=== PATIENT | female | born 1960 | race Caucasian/White ===

== ENCOUNTER → 2016-08-03 | Outpatient (REF) | payer OTHER | LOC: M SFHCWAGY 11:06 | PROVIDERS: ATTEND Nurse Practitioner Family | DX: Z12.4 Encounter for screening for malignant neoplasm of cervix (principal) ==

== ENCOUNTER → 2016-08-03 | Outpatient (CLI) | payer OTHER ==
--- NOTE | 2016-08-03 17:18 | REP ---
Digital screening bilateral mammography with CAD: Comparison mammography July 15, 2015, July 10, 2014, and July 10, 2013. June 05, 2012 prior mammography is also reviewed. Mammographic findings: There is a stable nodular opacity in the upper outer quadrant of the left breast, unchanged from comparison mammography May 2012. Scattered fibroglandular elements are seen bilaterally as before. There is a grouping of four to five microcalcifications located in the tight grouping in the upper outer quadrant of the right breast which merits further evaluation. The right breast is otherwise unremarkable. No other mammographic finding. Impression: BIRADS category 0 incomplete breast imaging. Tight grouping of microcalcifications are observed in the upper outer quadrant of the right breast. Diagnostic right breast mammography recommended. BI-RADS/ACR category 0 mammogram. Incomplete. Additional imaging and/or prior images are needed before a final assessment can be assigned. This mammogram was interpreted with the aid of an FDA-approved computer-aided detection system. The patient states she/he had a clinical breast exam in July 2016. The patient letter being requested is M0. Signed by Hira Phillips MD 08/03/2016 05:36 P
== END ==
LOC: M WHC 10:45
PROVIDERS: ATTEND Nurse Practitioner Family
DX: R92.2 Inconclusive mammogram (principal)

== ENCOUNTER → 2016-08-17 | Outpatient (CLI) | payer OTHER ==
--- NOTE | 2016-08-17 12:27 | REP ---
DIGITAL DIAGNOSTIC UNILATERAL RIGHT BREAST MAMMOGRAPHY WITH CAD: HISTORY: Possible micro calcific grouping in the right breast on screening study from August 03, 2016. Also reviewed is a comparison study from July 10, 2014. FINDINGS: Magnified focal spot compression CC, true ML, and MLO views of the right breast confirm the presence of a polymorphic grouping of 7 to 8 microcalcifications with faint soft tissue nodularity in the upper outer quadrant of the right breast. This is a new finding. It merits suspicion. No other abnormality is seen. IMPRESSION: BIRADS category 4 suspicious right breast mammography. Stereotactic needle biopsy recommended for micro calcific grouping upper outer quadrant right breast. B-RADS/ACR category 4 mammogram. Suspicious abnormality - biopsy should be considered. Usually requires biopsy. This mammogram was interpreted with the aid of an FDA-approved computer-aided detection system. The patient states she/he had a clinical breast exam in August 17, 2016. The patient letter being requested is M4. Signed by Hira Phillips MD 08/17/2016 12:41 P
== END ==
LOC: M RAD 11:42
PROVIDERS: ATTEND Nurse Practitioner Family
DX: R92.0 Mammographic microcalcification found on diagnostic imaging of breast (principal)

== ENCOUNTER → 2016-09-14 | Outpatient (CLI) | payer OTHER ==
[~2016-09-14] MED LIST: LIDOCAINE 1% MDV 20ML VIAL As Ordered ONE
--- NOTE | 2016-09-14 14:43 | REP ---
Digital diagnostic unilateral right breast mammography with CAD: Two views. History: Patient status post stereotactic needle biopsy for microcalcifications in a grouping in the upper outer quadrant of the right breast. Marker clip placement views. Comparison mammography: August 17, 2016, August 03, 2016. Findings: Craniocaudad and mediolateral views of the right breast were obtained post biopsy. These demonstrate a marker clip in good position at the site of the now removed grouping of microcalcifications. There appears to be one remaining microcalcification adjacent to the marker clip. No hematoma is seen. Impression: Marker clip in good position post stereotactic needle biopsy for microcalcifications. This mammogram was interpreted with the aid of an FDA-approved computer-aided detection system. Signed by Hira Phillips MD 09/14/2016 03:00 P
--- NOTE | 2016-09-14 14:44 | REP ---
Specimen radiography right breast specimen. History: Stereotactic needle biopsy right breast for microcalcifications. Comparison mammography July of 2016. Findings: Specimen radiography demonstrates virtually all of the calcifications from the microcalcific grouping in one of the removed breast specimens. Impression: Specimen radiography demonstrates microcalcifications from the target in the breast specimen. Signed by Hira Phillips MD 09/14/2016 03:00 P
--- NOTE | 2016-09-14 17:14 | REP ---
STEREOTACTIC RIGHT BREAST BIOPSY: The procedure was performed under the personal supervision of Dr. Phillips. The patient has a history of a polymorphic grouping of 7 to 8 microcalcifications in the upper outer quadrant of the right breast seen on a previous mammogram dated 08/17/2016. The risks and benefits of the procedure were explained to the patient and informed consent was obtained. A lateral medial approach was utilized. The calcifications were localized using stereotactic mammographic guidance. The skin was prepped and draped in a sterile fashion. 1% lidocaine was used as a local anesthetic. A 10-gauge suction-assisted Mammotome needle was inserted and 6 core biopsy samples were obtained. Specimen radiograph demonstrates the presence of calcifications to be within the specimen. A marker clip was placed at the biopsy site. The patient tolerated the procedure well and there were no immediate complications. After the appropriate amount of monitored convalescence the patient was discharged from the department. Reviewed by BRIE Roberto 09/15/2016 04:45 PEdited and Signed by Hira Phillips MD 09/18/2016 08:34 A
== END ==
LOC: M RADPRO 12:27
PROVIDERS: ATTEND Surgery
DX: N64.89 Other specified disorders of breast (principal)

== ENCOUNTER → 2017-01-02 | Outpatient (REF) | payer OTHER | LOC: M LAB REF 13:49 | PROVIDERS: ATTEND Physician Assistant Medical | DX: J11.1 Influenza due to unidentified influenza virus with other respiratory manifestations (principal) ==

== ENCOUNTER 2017-09-19 15:19 | Emergency (ER) | payer OTHER ==
[2017-09-19] MEDS: APIXABAN 5 MG TAB (ELIQUIS) PO (20:17)
== END 2017-09-19 20:20 | disposition home or self-care (01) ==
LOC: M ED 15:19
DX: I82.721 Chronic embolism and thrombosis of deep veins of right upper extremity (principal); I82.B11 Acute embolism and thrombosis of right subclavian vein; I10 Essential (primary) hypertension; E03.9 Hypothyroidism, unspecified; Z88.2 Allergy status to sulfonamides; Z91.040 Latex allergy status; Z79.899 Other long term (current) drug therapy
CPT/HCPCS: 93971

== ENCOUNTER 2017-09-21 09:42 | Inpatient (IN) | payer OTHER ==
[2017-09-21] MEDS: HEPARIN DRIP 25,000 UNITS in APPROPRIATE DILUENT 1 EA IV ×2 (13:11→16:00)
[2017-09-21] MEDS: NS 1,000 ML IV ×2 (13:15)
[2017-09-21] MEDS ORDERED: ALTEPLASE 2 MG/2 ML VIAL (J2997 PER 1MG) As Ordered (15:27)
[2017-09-21] MEDS: ALTEPLASE RECOMBINANT 25 MG in NS 225 ML IV (16:00)
[2017-09-21] MEDS: ALTEPLASE RECOMBINANT 10 MG in APPROPRIATE DILUENT 1 EA IV (16:00)
[2017-09-21] MEDS ORDERED: ISOVUE-300 61% 50ML VIAL (Q9967) As Ordered (16:04)
[2017-09-21 18:48] LABS: HEMATOCRIT 37.8 % (36.0-47.0); HEMOGLOBIN 12.4 g/dl (12.0-15.5)
[2017-09-21 19:07] LABS: PARTIAL THROMBOPLASTIN TIME 33.1 SECONDS (26.8-37.9)
[2017-09-21 19:07] LABS: FIBRINOGEN 424 MG/DL (221-452)
[2017-09-22 00:16] LABS: HEMATOCRIT 36.8 % (36.0-47.0)
[2017-09-22 00:23] LABS: FIBRINOGEN 388 MG/DL (221-452)
[2017-09-22 00:24] LABS: PARTIAL THROMBOPLASTIN TIME 44.2 SECONDS (26.8-37.9)
[2017-09-22] MEDS: LEVOTHYROXINE 112MCG TABLET (0.112MG) PO (05:37)
[2017-09-22] MEDS: LEVOTHYROXINE PO (05:55)
[2017-09-22 06:11] LABS: PARTIAL THROMBOPLASTIN TIME 62.2 SECONDS (26.8-37.9)
[2017-09-22 06:11] LABS: FIBRINOGEN 404 MG/DL (221-452)
[2017-09-22 06:20] LABS: HEMOGLOBIN 12.1 g/dl (12.0-15.5); MEAN CORPUSCULAR HEMOGLOBIN 29.3 pg (27.0-33.0); MEAN CORPUSCULAR HGB CONC 32.7 g/dl (32.0-36.5); MEAN CORPUSCULAR VOLUME 89.6 fl (80.0-96.0); PLATELET COUNT, AUTOMATED 267 10^3/uL (150-450); RED BLOOD COUNT 4.13 10^6/uL (4.00-5.40); WHITE BLOOD COUNT 8.4 10^3/uL (4.0-10.0)
[2017-09-22 06:38] LABS: ALBUMIN 3.6 GM/DL (3.2-5.2); ALBUMIN/GLOBULIN RATIO 0.88 (1.00-1.93); ALKALINE PHOSPHATASE 65 U/L (45-117); ALT/SGPT 25 U/L (12-78); ANION GAP 9 MEQ/L (8-16); AST/SGOT 20 U/L (7-37); BILIRUBIN,TOTAL 0.5 MG/DL (0.2-1.0); BLOOD UREA NITROGEN 20 MG/DL (7-18); CALCIUM LEVEL 8.8 MG/DL (8.5-10.1); CARBON DIOXIDE LEVEL 28 MEQ/L (21-32); CHLORIDE LEVEL 103 MEQ/L (98-107); CREATININE FOR GFR 0.87 MG/DL (0.55-1.30); GLOMERULAR FILTRATION RATE > 60.0 (>51); GLUCOSE, FASTING 125 MG/DL (70-100); POTASSIUM SERUM 3.5 MEQ/L (3.5-5.1); SODIUM LEVEL 140 MEQ/L (136-145); TOTAL PROTEIN 7.7 GM/DL (6.4-8.2)
[2017-09-22] MEDS: NEBIVOLOL 5 MG TAB (BYSTOLIC) PO (08:57)
[2017-09-22] MEDS: LOSARTAN 25 MG TAB PO (08:58)
[2017-09-22] MEDS: INDAPAMIDE 1.25MG TABLET PO (08:58)
[2017-09-22] MEDS: HEPARIN DRIP 25,000 UNITS in APPROPRIATE DILUENT 1 EA IV (12:16)
[2017-09-22 13:20] LABS: HEMATOCRIT 39.3 % (36.0-47.0); HEMOGLOBIN 12.9 g/dl (12.0-15.5)
[2017-09-22 13:32] LABS: FIBRINOGEN 410 MG/DL (221-452)
[2017-09-22 13:32] LABS: PARTIAL THROMBOPLASTIN TIME 30.2 SECONDS (26.8-37.9)
[2017-09-22] MEDS: ALTEPLASE RECOMBINANT 25 MG in NS 225 ML IV (15:59)
[2017-09-22 18:45] LABS: HEMATOCRIT 38.4 % (36.0-47.0); HEMOGLOBIN 12.4 g/dl (12.0-15.5)
[2017-09-22 19:21] LABS: FIBRINOGEN 397 MG/DL (221-452)
[2017-09-22 20:18] LABS: PARTIAL THROMBOPLASTIN TIME 34.9 SECONDS (26.8-37.9)
[2017-09-22] MEDS: FENOFIBRATE 145 MG TAB (TRICOR) PO (21:00)
[2017-09-23 00:09] LABS: FIBRINOGEN 368 MG/DL (221-452)
[2017-09-23 00:09] LABS: PARTIAL THROMBOPLASTIN TIME 38.8 SECONDS (26.8-37.9)
[2017-09-23 00:11] LABS: HEMATOCRIT 35.8 % (36.0-47.0); HEMOGLOBIN 11.7 g/dl (12.0-15.5)
[2017-09-23] MEDS: LEVOTHYROXINE 112MCG TABLET (0.112MG) PO (05:42)
[2017-09-23 06:00] LABS: HEMATOCRIT 35.7 % (36.0-47.0); HEMOGLOBIN 11.7 g/dl (12.0-15.5); MEAN CORPUSCULAR HEMOGLOBIN 29.1 pg (27.0-33.0); MEAN CORPUSCULAR HGB CONC 32.8 g/dl (32.0-36.5); MEAN CORPUSCULAR VOLUME 88.8 fl (80.0-96.0); PLATELET COUNT, AUTOMATED 249 10^3/uL (150-450); RED BLOOD COUNT 4.02 10^6/uL (4.00-5.40); RED CELL DISTRIBUTION WIDTH 13.8 % (11.5-14.5)
[2017-09-23 06:11] LABS: FIBRINOGEN 291 MG/DL (221-452)
[2017-09-23 06:56] LABS: ALBUMIN 3.2 GM/DL (3.2-5.2); ALBUMIN/GLOBULIN RATIO 0.82 (1.00-1.93); ALKALINE PHOSPHATASE 58 U/L (45-117); ALT/SGPT 23 U/L (12-78); ANION GAP 8 MEQ/L (8-16); AST/SGOT 25 U/L (7-37); BILIRUBIN,TOTAL 0.4 MG/DL (0.2-1.0); BLOOD UREA NITROGEN 20 MG/DL (7-18); CALCIUM LEVEL 8.5 MG/DL (8.5-10.1); CARBON DIOXIDE LEVEL 27 MEQ/L (21-32); CHLORIDE LEVEL 105 MEQ/L (98-107); CREATININE FOR GFR 0.91 MG/DL (0.55-1.30); GLOMERULAR FILTRATION RATE > 60.0 (>51); GLUCOSE, FASTING 140 MG/DL (70-100); POTASSIUM SERUM 3.5 MEQ/L (3.5-5.1); SODIUM LEVEL 140 MEQ/L (136-145); TOTAL PROTEIN 7.1 GM/DL (6.4-8.2)
[2017-09-23 07:17] LABS: PARTIAL THROMBOPLASTIN TIME 49.3 SECONDS (26.8-37.9)
[2017-09-23] MEDS: INDAPAMIDE 1.25MG TABLET PO (08:59)
[2017-09-23] MEDS: NEBIVOLOL 5 MG TAB (BYSTOLIC) PO (09:00)
[2017-09-23 12:51] LABS: PARTIAL THROMBOPLASTIN TIME 33.3 SECONDS (26.8-37.9)
[2017-09-23 12:51] LABS: FIBRINOGEN 334 MG/DL (221-452)
[2017-09-23] MEDS: ALTEPLASE RECOMBINANT 25 MG in NS 225 ML IV (15:19)
[2017-09-23] MEDS: HEPARIN DRIP 25,000 UNITS in APPROPRIATE DILUENT 1 EA IV (15:21)
[2017-09-23 18:42] LABS: HEMATOCRIT 37.1 % (36.0-47.0); HEMOGLOBIN 12.1 g/dl (12.0-15.5)
[2017-09-23 19:04] LABS: FIBRINOGEN 332 MG/DL (221-452)
[2017-09-23 19:04] LABS: PARTIAL THROMBOPLASTIN TIME 34.4 SECONDS (26.8-37.9)
[2017-09-23] MEDS: LOSARTAN 25 MG TAB PO (20:51)
[2017-09-23] MEDS: FENOFIBRATE 145 MG TAB (TRICOR) PO (20:51)
[2017-09-23] MEDS: NS 1,000 ML IV (21:41)
[2017-09-24 00:42] LABS: HEMATOCRIT 34.2 % (36.0-47.0); HEMOGLOBIN 11.4 g/dl (12.0-15.5)
[2017-09-24 00:49] LABS: PARTIAL THROMBOPLASTIN TIME 37.9 SECONDS (26.8-37.9)
[2017-09-24 00:49] LABS: FIBRINOGEN 247 MG/DL (221-452)
[2017-09-24] MEDS: LEVOTHYROXINE 112MCG TABLET (0.112MG) PO (06:15)
[2017-09-24 06:30] LABS: HEMATOCRIT 34.7 % (36.0-47.0); HEMOGLOBIN 11.3 g/dl (12.0-15.5); MEAN CORPUSCULAR HGB CONC 32.6 g/dl (32.0-36.5); MEAN CORPUSCULAR VOLUME 89.2 fl (80.0-96.0); PLATELET COUNT, AUTOMATED 207 10^3/uL (150-450); RED BLOOD COUNT 3.89 10^6/uL (4.00-5.40); RED CELL DISTRIBUTION WIDTH 13.8 % (11.5-14.5); WHITE BLOOD COUNT 7.3 10^3/uL (4.0-10.0)
[2017-09-24 06:40] LABS: PARTIAL THROMBOPLASTIN TIME 35.2 SECONDS (26.8-37.9)
[2017-09-24 06:40] LABS: FIBRINOGEN 276 MG/DL (221-452)
[2017-09-24 07:01] LABS: ALBUMIN 3.3 GM/DL (3.2-5.2); ALBUMIN/GLOBULIN RATIO 0.87 (1.00-1.93); ALKALINE PHOSPHATASE 61 U/L (45-117); ALT/SGPT 22 U/L (12-78); ANION GAP 6 MEQ/L (8-16); AST/SGOT 19 U/L (7-37); BILIRUBIN,TOTAL 0.3 MG/DL (0.2-1.0); BLOOD UREA NITROGEN 17 MG/DL (7-18); CALCIUM LEVEL 8.4 MG/DL (8.5-10.1); CARBON DIOXIDE LEVEL 28 MEQ/L (21-32); CHLORIDE LEVEL 106 MEQ/L (98-107); CREATININE FOR GFR 0.93 MG/DL (0.55-1.30); GLOMERULAR FILTRATION RATE > 60.0 (>51); GLUCOSE, FASTING 114 MG/DL (70-100); SODIUM LEVEL 140 MEQ/L (136-145); TOTAL PROTEIN 7.1 GM/DL (6.4-8.2)
[2017-09-24] MEDS ORDERED: SLF 3 ML SYR IV (07:30)
[2017-09-24] MEDS: NYSTATIN 100,000 UNITS/GM TOPICAL PWD 15 GM TOP ×2 (09:00→21:21)
[2017-09-24] MEDS: INDAPAMIDE 1.25MG TABLET PO (09:34)
[2017-09-24] MEDS: NEBIVOLOL 5 MG TAB (BYSTOLIC) PO (09:34)
[2017-09-24 12:16] LABS: HEMATOCRIT 34.4 % (36.0-47.0); HEMOGLOBIN 11.2 g/dl (12.0-15.5)
[2017-09-24 12:30] LABS: FIBRINOGEN 228 MG/DL (221-452); PARTIAL THROMBOPLASTIN TIME 36.7 SECONDS (26.8-37.9)
[2017-09-24] MEDS: SLF 3 ML SYR IV ×2 (14:00→22:00)
[2017-09-24] MEDS: HEPARIN DRIP 25,000 UNITS in APPROPRIATE DILUENT 1 EA IV (15:48)
[2017-09-24] MEDS: ALTEPLASE RECOMBINANT 25 MG in NS 225 ML IV (15:48)
[2017-09-24 18:08] LABS: HEMATOCRIT 31.3 % (36.0-47.0); HEMOGLOBIN 10.2 g/dl (12.0-15.5)
[2017-09-24 18:23] LABS: PARTIAL THROMBOPLASTIN TIME 43.8 SECONDS (26.8-37.9)
[2017-09-24 18:23] LABS: FIBRINOGEN 235 MG/DL (221-452)
[2017-09-24] MEDS: FENOFIBRATE 145 MG TAB (TRICOR) PO (21:19)
[2017-09-24] MEDS: LOSARTAN 25 MG TAB PO (21:20)
[2017-09-24] MEDS: NS 1,000 ML IV (21:30)
[2017-09-25 00:54] LABS: HEMOGLOBIN 11.3 g/dl (12.0-15.5)
[2017-09-25 01:22] LABS: FIBRINOGEN 188 MG/DL (221-452)
[2017-09-25 01:23] LABS: PARTIAL THROMBOPLASTIN TIME 80.2 SECONDS (26.8-37.9)
[2017-09-25] MEDS: SLF 3 ML SYR IV ×3 (06:05→21:20)
[2017-09-25] MEDS: LEVOTHYROXINE 112MCG TABLET (0.112MG) PO (06:05)
[2017-09-25 06:26] LABS: HEMOGLOBIN 11.2 g/dl (12.0-15.5); MEAN CORPUSCULAR HEMOGLOBIN 29.2 pg (27.0-33.0); MEAN CORPUSCULAR HGB CONC 32.9 g/dl (32.0-36.5); MEAN CORPUSCULAR VOLUME 88.8 fl (80.0-96.0); PLATELET COUNT, AUTOMATED 200 10^3/uL (150-450); RED BLOOD COUNT 3.83 10^6/uL (4.00-5.40); RED CELL DISTRIBUTION WIDTH 13.8 % (11.5-14.5); WHITE BLOOD COUNT 7.3 10^3/uL (4.0-10.0)
[2017-09-25 06:36] LABS: FIBRINOGEN 236 MG/DL (221-452)
[2017-09-25 06:36] LABS: PARTIAL THROMBOPLASTIN TIME 39.2 SECONDS (26.8-37.9)
[2017-09-25 06:59] LABS: ALBUMIN 3.1 GM/DL (3.2-5.2); ALBUMIN/GLOBULIN RATIO 0.79 (1.00-1.93); ALKALINE PHOSPHATASE 55 U/L (45-117); ALT/SGPT 20 U/L (12-78); ANION GAP 8 MEQ/L (8-16); AST/SGOT 22 U/L (7-37); BILIRUBIN,TOTAL 0.4 MG/DL (0.2-1.0); BLOOD UREA NITROGEN 11 MG/DL (7-18); CARBON DIOXIDE LEVEL 28 MEQ/L (21-32); CHLORIDE LEVEL 105 MEQ/L (98-107); CREATININE FOR GFR 0.82 MG/DL (0.55-1.30); GLOMERULAR FILTRATION RATE > 60.0 (>51); GLUCOSE, FASTING 107 MG/DL (70-100); POTASSIUM SERUM 3.9 MEQ/L (3.5-5.1); SODIUM LEVEL 141 MEQ/L (136-145)
[2017-09-25] MEDS ORDERED: ISOVUE-300 61% 50ML VIAL (Q9967) As Ordered (09:00)
[2017-09-25] MEDS: INDAPAMIDE 1.25MG TABLET PO (10:50)
[2017-09-25] MEDS: NYSTATIN 100,000 UNITS/GM TOPICAL PWD 15 GM TOP ×2 (10:50→20:28)
[2017-09-25] MEDS: NEBIVOLOL 5 MG TAB (BYSTOLIC) PO (10:51)
[2017-09-25 12:32] LABS: HEMATOCRIT 35.9 % (36.0-47.0); HEMOGLOBIN 11.7 g/dl (12.0-15.5)
[2017-09-25 12:47] LABS: PARTIAL THROMBOPLASTIN TIME 26.2 SECONDS (26.8-37.9)
[2017-09-25 12:48] LABS: FIBRINOGEN 179 MG/DL (221-452)
[2017-09-25] MEDS: ALTEPLASE RECOMBINANT 25 MG in NS 225 ML IV (15:42)
[2017-09-25] MEDS: HEPARIN DRIP 25,000 UNITS in APPROPRIATE DILUENT 1 EA IV (15:43)
[2017-09-25 18:32] LABS: HEMATOCRIT 35.6 % (36.0-47.0); HEMOGLOBIN 11.4 g/dl (12.0-15.5)
[2017-09-25 18:52] LABS: FIBRINOGEN 223 MG/DL (221-452)
[2017-09-25 18:52] LABS: PARTIAL THROMBOPLASTIN TIME 33.3 SECONDS (26.8-37.9)
[2017-09-25] MEDS: FENOFIBRATE 145 MG TAB (TRICOR) PO (20:28)
[2017-09-25] MEDS: LOSARTAN 25 MG TAB PO (20:28)
[2017-09-25] MEDS: NS 1,000 ML IV (21:20)
[2017-09-26 00:08] LABS: HEMATOCRIT 33.6 % (36.0-47.0)
[2017-09-26 00:52] LABS: PARTIAL THROMBOPLASTIN TIME 34.8 SECONDS (26.8-37.9)
[2017-09-26 00:52] LABS: FIBRINOGEN 222 MG/DL (221-452)
[2017-09-26] MEDS: LEVOTHYROXINE 112MCG TABLET (0.112MG) PO (05:53)
[2017-09-26] MEDS: SLF 3 ML SYR IV ×3 (05:54→21:49)
[2017-09-26 06:06] LABS: HEMATOCRIT 34.6 % (36.0-47.0); HEMOGLOBIN 11.2 g/dl (12.0-15.5); MEAN CORPUSCULAR HGB CONC 32.4 g/dl (32.0-36.5); MEAN CORPUSCULAR VOLUME 89.6 fl (80.0-96.0); PLATELET COUNT, AUTOMATED 198 10^3/uL (150-450); RED BLOOD COUNT 3.86 10^6/uL (4.00-5.40); RED CELL DISTRIBUTION WIDTH 13.8 % (11.5-14.5); WHITE BLOOD COUNT 7.4 10^3/uL (4.0-10.0)
[2017-09-26 06:17] LABS: PARTIAL THROMBOPLASTIN TIME 36.5 SECONDS (26.8-37.9)
[2017-09-26 06:17] LABS: FIBRINOGEN 260 MG/DL (221-452)
[2017-09-26 06:41] LABS: ALBUMIN 3.3 GM/DL (3.2-5.2); ALBUMIN/GLOBULIN RATIO 0.77 (1.00-1.93); ALKALINE PHOSPHATASE 60 U/L (45-117); ALT/SGPT 22 U/L (12-78); ANION GAP 7 MEQ/L (8-16); AST/SGOT 26 U/L (7-37); BILIRUBIN,TOTAL 0.2 MG/DL (0.2-1.0); BLOOD UREA NITROGEN 17 MG/DL (7-18); CALCIUM LEVEL 8.8 MG/DL (8.5-10.1); CARBON DIOXIDE LEVEL 27 MEQ/L (21-32); CHLORIDE LEVEL 104 MEQ/L (98-107); GLOMERULAR FILTRATION RATE > 60.0 (>51); GLUCOSE, FASTING 128 MG/DL (70-100); POTASSIUM SERUM 3.8 MEQ/L (3.5-5.1); SODIUM LEVEL 138 MEQ/L (136-145); TOTAL PROTEIN 7.6 GM/DL (6.4-8.2)
[2017-09-26] MEDS: INDAPAMIDE 1.25MG TABLET PO (08:13)
[2017-09-26] MEDS: NYSTATIN 100,000 UNITS/GM TOPICAL PWD 15 GM TOP ×2 (08:14→20:34)
[2017-09-26] MEDS: NEBIVOLOL 5 MG TAB (BYSTOLIC) PO (09:23)
[2017-09-26 12:33] LABS: HEMATOCRIT 35.1 % (36.0-47.0); HEMOGLOBIN 11.6 g/dl (12.0-15.5)
[2017-09-26] MEDS ORDERED: HEPARIN 25,000 UNITS/250 ML D5W BAG (100 UNITS/ML) As Ordered (15:27)
[2017-09-26] MEDS: HEPARIN DRIP 25,000 UNITS in APPROPRIATE DILUENT 1 EA IV (19:00)
[2017-09-26] MEDS: FENOFIBRATE 145 MG TAB (TRICOR) PO (20:34)
[2017-09-26] MEDS: LOSARTAN 25 MG TAB PO (20:34)
[2017-09-26] MEDS: ALTEPLASE RECOMBINANT IV (20:37)
[2017-09-26] MEDS: NS IV (20:37)
[2017-09-26] MEDS: NS 1,000 ML IV (21:30)
[2017-09-27 00:09] LABS: HEMATOCRIT 32.8 % (36.0-47.0); HEMOGLOBIN 10.7 g/dl (12.0-15.5)
[2017-09-27 00:36] LABS: FIBRINOGEN 264 MG/DL (221-452)
[2017-09-27 00:36] LABS: PARTIAL THROMBOPLASTIN TIME 31.9 SECONDS (26.8-37.9)
[2017-09-27 01:24] LABS: PARTIAL THROMBOPLASTIN TIME 38.9 SECONDS (26.8-37.9)
[2017-09-27 01:24] LABS: FIBRINOGEN < 270 MG/DL (221-452); HEMATOCRIT 31.5 % (36.0-47.0); HEMOGLOBIN 10.4 g/dl (12.0-15.5)
[2017-09-27] MEDS: LEVOTHYROXINE 112MCG TABLET (0.112MG) PO (05:43)
[2017-09-27] MEDS: SLF 3 ML SYR IV ×3 (05:43→20:52)
[2017-09-27 05:55] LABS: HEMATOCRIT 34.1 % (36.0-47.0); HEMOGLOBIN 10.9 g/dl (12.0-15.5); MEAN CORPUSCULAR HEMOGLOBIN 28.8 pg (27.0-33.0); MEAN CORPUSCULAR VOLUME 90.2 fl (80.0-96.0); PLATELET COUNT, AUTOMATED 184 10^3/uL (150-450); RED BLOOD COUNT 3.78 10^6/uL (4.00-5.40); RED CELL DISTRIBUTION WIDTH 13.8 % (11.5-14.5); WHITE BLOOD COUNT 8.4 10^3/uL (4.0-10.0)
[2017-09-27 06:23] LABS: ALBUMIN 3.2 GM/DL (3.2-5.2); ALBUMIN/GLOBULIN RATIO 0.74 (1.00-1.93); ALKALINE PHOSPHATASE 60 U/L (45-117); ALT/SGPT 29 U/L (12-78); ANION GAP 7 MEQ/L (8-16); AST/SGOT 26 U/L (7-37); BILIRUBIN,TOTAL 0.3 MG/DL (0.2-1.0); BLOOD UREA NITROGEN 18 MG/DL (7-18); CALCIUM LEVEL 8.9 MG/DL (8.5-10.1); CARBON DIOXIDE LEVEL 27 MEQ/L (21-32); CHLORIDE LEVEL 106 MEQ/L (98-107); CREATININE FOR GFR 0.95 MG/DL (0.55-1.30); GLOMERULAR FILTRATION RATE > 60.0 (>51); GLUCOSE, FASTING 106 MG/DL (70-100); SODIUM LEVEL 140 MEQ/L (136-145); TOTAL PROTEIN 7.5 GM/DL (6.4-8.2)
[2017-09-27 07:11] LABS: FIBRINOGEN 173 MG/DL (221-452)
[2017-09-27 07:12] LABS: PARTIAL THROMBOPLASTIN TIME 56.8 SECONDS (26.8-37.9)
[2017-09-27 07:41] LABS: PARTIAL THROMBOPLASTIN TIME 48.5 SECONDS (26.8-37.9)
[2017-09-27 07:41] LABS: FIBRINOGEN 87 MG/DL (221-452)
[2017-09-27] MEDS ORDERED: ISOVUE-300 61% 50ML VIAL (Q9967) As Ordered (08:55)
[2017-09-27] MEDS ORDERED: LIDOCAINE 2% MDV 20 ML VIAL As Ordered (08:56)
[2017-09-27] MEDS: INDAPAMIDE 1.25MG TABLET PO (11:22)
[2017-09-27] MEDS: NYSTATIN 100,000 UNITS/GM TOPICAL PWD 15 GM TOP ×2 (11:23→20:51)
[2017-09-27] MEDS: NEBIVOLOL 5 MG TAB (BYSTOLIC) PO (11:23)
[2017-09-27 11:49] LABS: HEMATOCRIT 35.3 % (36.0-47.0); HEMOGLOBIN 11.4 g/dl (12.0-15.5)
[2017-09-27 12:05] LABS: FIBRINOGEN 110 MG/DL (221-452)
[2017-09-27] MEDS: NS 1,000 ML IV (14:02)
[2017-09-27] MEDS: HEPARIN DRIP 25,000 UNITS in APPROPRIATE DILUENT 1 EA IV (14:03)
[2017-09-27] MEDS: NS IV (16:48)
[2017-09-27] MEDS: ALTEPLASE RECOMBINANT IV (16:48)
[2017-09-27 18:35] LABS: HEMATOCRIT 24.8 % (36.0-47.0); HEMOGLOBIN 7.7 g/dl (12.0-15.5)
[2017-09-27 19:19] LABS: FIBRINOGEN 165 MG/DL (221-452)
[2017-09-27 19:19] LABS: PARTIAL THROMBOPLASTIN TIME 51.7 SECONDS (26.8-37.9)
[2017-09-27] MEDS: FENOFIBRATE 145 MG TAB (TRICOR) PO (20:51)
[2017-09-27] MEDS: LOSARTAN 25 MG TAB PO (20:51)
[2017-09-27 23:51] LABS: HEMATOCRIT 33.7 % (36.0-47.0)
[2017-09-28 00:05] LABS: HEMOGLOBIN 10.9 g/dl (12.0-15.5)
[2017-09-28 00:30] LABS: FIBRINOGEN 130 MG/DL (221-452)
[2017-09-28] MEDS: LEVOTHYROXINE 112MCG TABLET (0.112MG) PO (05:08)
[2017-09-28 05:14] LABS: HEMATOCRIT 33.8 % (36.0-47.0); HEMOGLOBIN 10.8 g/dl (12.0-15.5); MEAN CORPUSCULAR HEMOGLOBIN 28.8 pg (27.0-33.0); MEAN CORPUSCULAR VOLUME 90.1 fl (80.0-96.0); PLATELET COUNT, AUTOMATED 185 10^3/uL (150-450); RED BLOOD COUNT 3.75 10^6/uL (4.00-5.40); RED CELL DISTRIBUTION WIDTH 13.9 % (11.5-14.5)
[2017-09-28] MEDS: SLF 3 ML SYR IV ×3 (05:21→21:39)
[2017-09-28 05:48] LABS: ALBUMIN 3.3 GM/DL (3.2-5.2); ALBUMIN/GLOBULIN RATIO 0.83 (1.00-1.93); ALKALINE PHOSPHATASE 63 U/L (45-117); ALT/SGPT 25 U/L (12-78); ANION GAP 6 MEQ/L (8-16); AST/SGOT 21 U/L (7-37); BILIRUBIN,TOTAL 0.3 MG/DL (0.2-1.0); BLOOD UREA NITROGEN 19 MG/DL (7-18); CALCIUM LEVEL 8.5 MG/DL (8.5-10.1); CARBON DIOXIDE LEVEL 28 MEQ/L (21-32); CHLORIDE LEVEL 106 MEQ/L (98-107); CREATININE FOR GFR 0.95 MG/DL (0.55-1.30); GLOMERULAR FILTRATION RATE > 60.0 (>51); GLUCOSE, FASTING 117 MG/DL (70-100); POTASSIUM SERUM 4.1 MEQ/L (3.5-5.1); SODIUM LEVEL 140 MEQ/L (136-145); TOTAL PROTEIN 7.3 GM/DL (6.4-8.2)
[2017-09-28 05:56] LABS: FIBRINOGEN 203 MG/DL (221-452)
[2017-09-28 05:57] LABS: PARTIAL THROMBOPLASTIN TIME 68.4 SECONDS (26.8-37.9)
[2017-09-28] MEDS: NYSTATIN 100,000 UNITS/GM TOPICAL PWD 15 GM TOP ×2 (09:00→21:34)
[2017-09-28] MEDS: INDAPAMIDE 1.25MG TABLET PO (09:00)
[2017-09-28] MEDS: NEBIVOLOL 5 MG TAB (BYSTOLIC) PO (09:01)
[2017-09-28] MEDS: HEPARIN DRIP 25,000 UNITS in APPROPRIATE DILUENT 1 EA IV (09:10)
[2017-09-28] MEDS: NS IV (16:36)
[2017-09-28] MEDS: ALTEPLASE RECOMBINANT IV (16:36)
[2017-09-28 18:43] LABS: HEMATOCRIT 34.2 % (36.0-47.0); HEMOGLOBIN 11.1 g/dl (12.0-15.5)
[2017-09-28 18:54] LABS: PARTIAL THROMBOPLASTIN TIME 67.9 SECONDS (26.8-37.9)
[2017-09-28 18:54] LABS: FIBRINOGEN 224 MG/DL (221-452)
[2017-09-28] MEDS ORDERED: SODIUM CHLORIDE 0.9% INJ 10 ML SYR IV (21:30)
[2017-09-28] MEDS: LOSARTAN 25 MG TAB PO (21:34)
[2017-09-28] MEDS: NS 1,000 ML IV (21:35)
[2017-09-28] MEDS: FENOFIBRATE 145 MG TAB (TRICOR) PO (21:37)
[2017-09-28] MEDS: SODIUM CHLORIDE 0.9% INJ 10 ML SYR IV (21:38)
[2017-09-29 00:43] LABS: HEMATOCRIT 34.2 % (36.0-47.0); HEMOGLOBIN 10.9 g/dl (12.0-15.5)
[2017-09-29 01:01] LABS: FIBRINOGEN 217 MG/DL (221-452)
[2017-09-29 01:01] LABS: PARTIAL THROMBOPLASTIN TIME 39.4 SECONDS (26.8-37.9)
[2017-09-29] MEDS: SLF 3 ML SYR IV ×2 (06:00→14:00)
[2017-09-29] MEDS: SODIUM CHLORIDE 0.9% INJ 10 ML SYR IV ×2 (06:35→14:00)
[2017-09-29] MEDS: LEVOTHYROXINE PO (06:35)
[2017-09-29] MEDS: LEVOTHYROXINE 112MCG TABLET (0.112MG) PO (06:35)
[2017-09-29] MEDS: HEPARIN DRIP 25,000 UNITS in APPROPRIATE DILUENT 1 EA IV (06:39)
[2017-09-29 06:40] LABS: HEMATOCRIT 33.2 % (36.0-47.0); HEMOGLOBIN 10.7 g/dl (12.0-15.5)
[2017-09-29 07:00] LABS: FIBRINOGEN 229 MG/DL (221-452)
[2017-09-29 07:00] LABS: PARTIAL THROMBOPLASTIN TIME 46.2 SECONDS (26.8-37.9)
[2017-09-29] MEDS: NYSTATIN 100,000 UNITS/GM TOPICAL PWD 15 GM TOP ×2 (09:38→21:36)
[2017-09-29] MEDS: INDAPAMIDE 1.25MG TABLET PO (09:38)
[2017-09-29] MEDS: NEBIVOLOL 5 MG TAB (BYSTOLIC) PO (09:39)
[2017-09-29 12:21] LABS: HEMATOCRIT 34.5 % (36.0-47.0); HEMOGLOBIN 11.2 g/dl (12.0-15.5); MEAN CORPUSCULAR HEMOGLOBIN 29.4 pg (27.0-33.0); MEAN CORPUSCULAR HGB CONC 32.5 g/dl (32.0-36.5); MEAN CORPUSCULAR VOLUME 90.6 fl (80.0-96.0); PLATELET COUNT, AUTOMATED 213 10^3/uL (150-450); RED BLOOD COUNT 3.81 10^6/uL (4.00-5.40); RED CELL DISTRIBUTION WIDTH 13.9 % (11.5-14.5); WHITE BLOOD COUNT 8.3 10^3/uL (4.0-10.0)
[2017-09-29 12:35] LABS: PARTIAL THROMBOPLASTIN TIME 36.9 SECONDS (26.8-37.9)
[2017-09-29 12:35] LABS: FIBRINOGEN 241 MG/DL (221-452)
[2017-09-29 12:43] LABS: ANION GAP 8 MEQ/L (8-16); BLOOD UREA NITROGEN 21 MG/DL (7-18); CALCIUM LEVEL 9.2 MG/DL (8.5-10.1); CARBON DIOXIDE LEVEL 27 MEQ/L (21-32); CHLORIDE LEVEL 104 MEQ/L (98-107); CREATININE FOR GFR 0.96 MG/DL (0.55-1.30); GLOMERULAR FILTRATION RATE > 60.0 (>51); GLUCOSE, FASTING 127 MG/DL (70-100); POTASSIUM SERUM 3.9 MEQ/L (3.5-5.1); SODIUM LEVEL 139 MEQ/L (136-145)
[2017-09-29] MEDS: NS IV (14:56)
[2017-09-29] MEDS: ALTEPLASE RECOMBINANT IV (14:56)
[2017-09-29] MEDS: NS 1,000 ML IV (17:57)
[2017-09-29 18:17] LABS: HEMATOCRIT 33.1 % (36.0-47.0); HEMOGLOBIN 10.7 g/dl (12.0-15.5)
[2017-09-29 18:30] LABS: PARTIAL THROMBOPLASTIN TIME 38.2 SECONDS (26.8-37.9)
[2017-09-29 18:30] LABS: FIBRINOGEN 237 MG/DL (221-452)
[2017-09-29] MEDS: FENOFIBRATE 145 MG TAB (TRICOR) PO (21:36)
[2017-09-29] MEDS: LOSARTAN 25 MG TAB PO (21:36)
[2017-09-30] MEDS: SODIUM CHLORIDE 0.9% INJ 10 ML SYR IV ×3 (00:07→14:00)
[2017-09-30] MEDS: SLF 3 ML SYR IV ×3 (00:07→14:00)
[2017-09-30 00:37] LABS: HEMATOCRIT 33.3 % (36.0-47.0); HEMOGLOBIN 10.7 g/dl (12.0-15.5)
[2017-09-30 00:54] LABS: FIBRINOGEN 226 MG/DL (221-452)
[2017-09-30] MEDS: HEPARIN DRIP 25,000 UNITS in APPROPRIATE DILUENT 1 EA IV (04:05)
[2017-09-30] MEDS: LEVOTHYROXINE 112MCG TABLET (0.112MG) PO (06:13)
[2017-09-30 06:22] LABS: HEMATOCRIT 33.2 % (36.0-47.0); HEMOGLOBIN 10.5 g/dl (12.0-15.5)
[2017-09-30 06:36] LABS: FIBRINOGEN 209 MG/DL (221-452)
[2017-09-30 06:36] LABS: PARTIAL THROMBOPLASTIN TIME 42.2 SECONDS (26.8-37.9)
[2017-09-30] MEDS: NEBIVOLOL 5 MG TAB (BYSTOLIC) PO (09:36)
[2017-09-30] MEDS: INDAPAMIDE 1.25MG TABLET PO (09:36)
[2017-09-30] MEDS: NYSTATIN 100,000 UNITS/GM TOPICAL PWD 15 GM TOP ×2 (09:37→20:25)
[2017-09-30 12:34] LABS: HEMATOCRIT 35.8 % (36.0-47.0); HEMOGLOBIN 11.5 g/dl (12.0-15.5)
[2017-09-30 12:47] LABS: PARTIAL THROMBOPLASTIN TIME 46.8 SECONDS (26.8-37.9)
[2017-09-30 12:47] LABS: FIBRINOGEN 244 MG/DL (221-452)
[2017-09-30] MEDS: NS IV (13:37)
[2017-09-30] MEDS: ALTEPLASE RECOMBINANT IV (13:37)
[2017-09-30 18:38] LABS: HEMATOCRIT 34.4 % (36.0-47.0); HEMOGLOBIN 11.2 g/dl (12.0-15.5)
[2017-09-30 19:02] LABS: PARTIAL THROMBOPLASTIN TIME 44.7 SECONDS (26.8-37.9)
[2017-09-30 19:07] LABS: FIBRINOGEN 280 MG/DL (221-452)
[2017-09-30] MEDS: LOSARTAN 25 MG TAB PO (20:25)
[2017-09-30] MEDS: FENOFIBRATE 145 MG TAB (TRICOR) PO (20:25)
[2017-09-30] MEDS: ALTEPLASE RECOMBINANT 10 MG in NS 90 ML IV (21:23)
[2017-10-01] MEDS: SODIUM CHLORIDE 0.9% INJ 10 ML SYR IV ×3 (00:04→18:00)
[2017-10-01] MEDS: HEPARIN DRIP 25,000 UNITS in APPROPRIATE DILUENT 1 EA IV ×2 (00:05→20:01)
[2017-10-01 00:44] LABS: HEMATOCRIT 31.6 % (36.0-47.0); HEMOGLOBIN 10.4 g/dl (12.0-15.5)
[2017-10-01 01:27] LABS: FIBRINOGEN 256 MG/DL (221-452)
[2017-10-01 01:27] LABS: PARTIAL THROMBOPLASTIN TIME 41.3 SECONDS (26.8-37.9)
[2017-10-01] MEDS: LEVOTHYROXINE 112MCG TABLET (0.112MG) PO (05:59)
[2017-10-01] MEDS: ALTEPLASE RECOMBINANT 10 MG in NS 90 ML IV ×3 (06:00→20:00)
[2017-10-01 06:20] LABS: HEMOGLOBIN 10.8 g/dl (12.0-15.5); MEAN CORPUSCULAR HEMOGLOBIN 29.5 pg (27.0-33.0); MEAN CORPUSCULAR HGB CONC 32.7 g/dl (32.0-36.5); MEAN CORPUSCULAR VOLUME 90.2 fl (80.0-96.0); PLATELET COUNT, AUTOMATED 189 10^3/uL (150-450); RED BLOOD COUNT 3.66 10^6/uL (4.00-5.40); RED CELL DISTRIBUTION WIDTH 14.1 % (11.5-14.5); WHITE BLOOD COUNT 8.8 10^3/uL (4.0-10.0)
[2017-10-01 06:31] LABS: FIBRINOGEN 247 MG/DL (221-452)
[2017-10-01 06:32] LABS: PARTIAL THROMBOPLASTIN TIME 43.3 SECONDS (26.8-37.9)
[2017-10-01 06:36] LABS: ANION GAP 7 MEQ/L (8-16); BLOOD UREA NITROGEN 21 MG/DL (7-18); CALCIUM LEVEL 8.8 MG/DL (8.5-10.1); CARBON DIOXIDE LEVEL 26 MEQ/L (21-32); CHLORIDE LEVEL 106 MEQ/L (98-107); CREATININE FOR GFR 0.96 MG/DL (0.55-1.30); GLOMERULAR FILTRATION RATE > 60.0 (>51); GLUCOSE, FASTING 116 MG/DL (70-100); SODIUM LEVEL 139 MEQ/L (136-145)
[2017-10-01] MEDS: NEBIVOLOL 5 MG TAB (BYSTOLIC) PO (08:03)
[2017-10-01] MEDS: INDAPAMIDE 1.25MG TABLET PO (08:04)
[2017-10-01] MEDS: NYSTATIN 100,000 UNITS/GM TOPICAL PWD 15 GM TOP ×2 (08:04→20:43)
[2017-10-01 13:00] LABS: HEMATOCRIT 32.8 % (36.0-47.0); HEMOGLOBIN 10.6 g/dl (12.0-15.5)
[2017-10-01 13:14] LABS: FIBRINOGEN 251 MG/DL (221-452)
[2017-10-01 13:15] LABS: PARTIAL THROMBOPLASTIN TIME 51.1 SECONDS (26.8-37.9)
[2017-10-01 18:02] LABS: HEMATOCRIT 33.6 % (36.0-47.0); HEMOGLOBIN 10.9 g/dl (12.0-15.5)
[2017-10-01 18:19] LABS: PARTIAL THROMBOPLASTIN TIME 38.5 SECONDS (26.8-37.9)
[2017-10-01 18:19] LABS: FIBRINOGEN 265 MG/DL (221-452)
[2017-10-01] MEDS: NS 1,000 ML IV (19:59)
[2017-10-01] MEDS: FENOFIBRATE 145 MG TAB (TRICOR) PO (20:26)
[2017-10-01] MEDS: LOSARTAN 25 MG TAB PO (20:26)
[2017-10-01] MEDS ORDERED: CLINDAMYCIN 900 MG in APPROPRIATE DILUENT 1 EA IV (22:00)
[2017-10-02 00:09] LABS: FIBRINOGEN 255 MG/DL (221-452)
[2017-10-02 00:09] LABS: PARTIAL THROMBOPLASTIN TIME 41.9 SECONDS (26.8-37.9)
[2017-10-02 00:19] LABS: HEMATOCRIT 31.9 % (36.0-47.0); HEMOGLOBIN 10.4 g/dl (12.0-15.5)
[2017-10-02] MEDS: ALTEPLASE RECOMBINANT 10 MG in NS 90 ML IV (03:07)
[2017-10-02] MEDS: LEVOTHYROXINE 112MCG TABLET (0.112MG) PO (05:24)
[2017-10-02] MEDS: SODIUM CHLORIDE 0.9% INJ 10 ML SYR IV ×2 (05:25→18:06)
[2017-10-02 05:40] LABS: HEMATOCRIT 32.3 % (36.0-47.0); HEMOGLOBIN 10.4 g/dl (12.0-15.5); MEAN CORPUSCULAR HEMOGLOBIN 29.2 pg (27.0-33.0); MEAN CORPUSCULAR HGB CONC 32.2 g/dl (32.0-36.5); MEAN CORPUSCULAR VOLUME 90.7 fl (80.0-96.0); PLATELET COUNT, AUTOMATED 175 10^3/uL (150-450); RED BLOOD COUNT 3.56 10^6/uL (4.00-5.40); RED CELL DISTRIBUTION WIDTH 14.2 % (11.5-14.5); WHITE BLOOD COUNT 8.2 10^3/uL (4.0-10.0)
[2017-10-02 05:51] LABS: FIBRINOGEN 241 MG/DL (221-452)
[2017-10-02 06:02] LABS: ANION GAP 7 MEQ/L (8-16); BLOOD UREA NITROGEN 19 MG/DL (7-18); CARBON DIOXIDE LEVEL 28 MEQ/L (21-32); CHLORIDE LEVEL 105 MEQ/L (98-107); GLOMERULAR FILTRATION RATE > 60.0 (>51); GLUCOSE, FASTING 116 MG/DL (70-100); POTASSIUM SERUM 4.2 MEQ/L (3.5-5.1); SODIUM LEVEL 140 MEQ/L (136-145)
[2017-10-02] MEDS: NYSTATIN 100,000 UNITS/GM TOPICAL PWD 15 GM TOP ×2 (09:19→20:28)
[2017-10-02] MEDS: INDAPAMIDE 1.25MG TABLET PO (09:19)
[2017-10-02] MEDS: NEBIVOLOL 5 MG TAB (BYSTOLIC) PO (09:20)
[2017-10-02 12:28] LABS: HEMOGLOBIN 10.6 g/dl (12.0-15.5)
[2017-10-02 12:50] LABS: PARTIAL THROMBOPLASTIN TIME 42.5 SECONDS (26.8-37.9)
[2017-10-02 12:50] LABS: FIBRINOGEN 251 MG/DL (221-452)
[2017-10-02] MEDS ORDERED: NS IV (13:00)
[2017-10-02] MEDS ORDERED: ALTEPLASE RECOMBINANT IV (13:00)
[2017-10-02] MEDS: ALTEPLASE RECOMBINANT IV (13:17)
[2017-10-02] MEDS: NS IV (13:17)
[2017-10-02] MEDS ORDERED: ISOVUE-300 61% 50ML VIAL (Q9967) As Ordered (16:17)
[2017-10-02] MEDS ORDERED: MIDAZOLAM INJ 2 MG/2 ML VIAL (J2250) As Ordered (16:44)
[2017-10-02] MEDS ORDERED: fentaNYL 100 MCG/2 ML INJECTION (J3010) As Ordered (16:44)
[2017-10-02] MEDS ORDERED: HEPARIN 1,000 UNITS/ML 10ML VIAL (FOR RADIOLOGY& DIALYSIS ONLY) As Ordered (16:48)
[2017-10-02 18:20] LABS: INR 1.01; PROTHROMBIN TIME 13.4 SECONDS (12.4-14.5)
[2017-10-02 18:22] LABS: PARTIAL THROMBOPLASTIN TIME 83.6 SECONDS (26.8-37.9)
[2017-10-02] MEDS: HEPARIN DRIP 25,000 UNITS in APPROPRIATE DILUENT 1 EA IV (19:43)
[2017-10-02] MEDS: LOSARTAN 25 MG TAB PO (20:18)
[2017-10-02] MEDS: FENOFIBRATE 145 MG TAB (TRICOR) PO (20:18)
[2017-10-03 00:04] LABS: PARTIAL THROMBOPLASTIN TIME 49.5 SECONDS (26.8-37.9)
[2017-10-03] MEDS: HEPARIN SOD (PORCINE) 5000 UNITS/ML VIAL IV ×2 (00:16→12:36)
[2017-10-03] MEDS: LEVOTHYROXINE 112MCG TABLET (0.112MG) PO (05:32)
[2017-10-03] MEDS: SODIUM CHLORIDE 0.9% INJ 10 ML SYR IV ×2 (05:55→17:58)
[2017-10-03 05:56] LABS: HEMATOCRIT 32.4 % (36.0-47.0); HEMOGLOBIN 10.4 g/dl (12.0-15.5); MEAN CORPUSCULAR HEMOGLOBIN 29.1 pg (27.0-33.0); MEAN CORPUSCULAR HGB CONC 32.1 g/dl (32.0-36.5); MEAN CORPUSCULAR VOLUME 90.5 fl (80.0-96.0); PLATELET COUNT, AUTOMATED 188 10^3/uL (150-450); RED BLOOD COUNT 3.58 10^6/uL (4.00-5.40); RED CELL DISTRIBUTION WIDTH 13.9 % (11.5-14.5); WHITE BLOOD COUNT 8.9 10^3/uL (4.0-10.0)
[2017-10-03 06:29] LABS: ANION GAP 8 MEQ/L (8-16); BLOOD UREA NITROGEN 20 MG/DL (7-18); CALCIUM LEVEL 9.1 MG/DL (8.5-10.1); CARBON DIOXIDE LEVEL 25 MEQ/L (21-32); CHLORIDE LEVEL 102 MEQ/L (98-107); CREATININE FOR GFR 0.93 MG/DL (0.55-1.30); GLOMERULAR FILTRATION RATE > 60.0 (>51); GLUCOSE, FASTING 115 MG/DL (70-100); POTASSIUM SERUM 4.1 MEQ/L (3.5-5.1); SODIUM LEVEL 135 MEQ/L (136-145)
[2017-10-03] MEDS: NEBIVOLOL 5 MG TAB (BYSTOLIC) PO (08:31)
[2017-10-03] MEDS: INDAPAMIDE 1.25MG TABLET PO (08:32)
[2017-10-03] MEDS: NYSTATIN 100,000 UNITS/GM TOPICAL PWD 15 GM TOP ×2 (08:32→20:05)
[2017-10-03 12:01] LABS: PARTIAL THROMBOPLASTIN TIME 53.6 SECONDS (26.8-37.9)
[2017-10-03] MEDS: WARFARIN SOD 7.5 MG TAB PO (16:57)
[2017-10-03] MEDS ORDERED: WARFARIN SOD 7.5 MG TAB PO (17:00)
[2017-10-03 18:30] LABS: PARTIAL THROMBOPLASTIN TIME 87.1 SECONDS (26.8-37.9)
[2017-10-03] MEDS: LOSARTAN 25 MG TAB PO (20:05)
[2017-10-03] MEDS: FENOFIBRATE 145 MG TAB (TRICOR) PO (20:05)
[2017-10-04 00:23] LABS: PARTIAL THROMBOPLASTIN TIME 87.2 SECONDS (26.8-37.9)
[2017-10-04] MEDS: HEPARIN DRIP 25,000 UNITS in APPROPRIATE DILUENT 1 EA IV (03:35)
[2017-10-04] MEDS: LEVOTHYROXINE 112MCG TABLET (0.112MG) PO (05:48)
[2017-10-04] MEDS: SODIUM CHLORIDE 0.9% INJ 10 ML SYR IV (05:48)
[2017-10-04 06:20] LABS: INR 1.02; PROTHROMBIN TIME 13.5 SECONDS (12.4-14.5)
[2017-10-04 06:22] LABS: PARTIAL THROMBOPLASTIN TIME 65.5 SECONDS (26.8-37.9)
[2017-10-04 06:32] LABS: ANION GAP 8 MEQ/L (8-16); BLOOD UREA NITROGEN 28 MG/DL (7-18); CALCIUM LEVEL 9.3 MG/DL (8.5-10.1); CARBON DIOXIDE LEVEL 28 MEQ/L (21-32); CHLORIDE LEVEL 102 MEQ/L (98-107); CREATININE FOR GFR 1.05 MG/DL (0.55-1.30); GLOMERULAR FILTRATION RATE 57.5 (>51); GLUCOSE, FASTING 170 MG/DL (70-100); POTASSIUM SERUM 3.9 MEQ/L (3.5-5.1); SODIUM LEVEL 138 MEQ/L (136-145)
[2017-10-04] MEDS: NEBIVOLOL 5 MG TAB (BYSTOLIC) PO (09:09)
[2017-10-04] MEDS: INDAPAMIDE 1.25MG TABLET PO (09:09)
[2017-10-04] MEDS: NYSTATIN 100,000 UNITS/GM TOPICAL PWD 15 GM TOP (09:11)
[2017-10-04 11:56] LABS: PARTIAL THROMBOPLASTIN TIME 37.4 SECONDS (26.8-37.9)
[2017-10-04] MEDS: ENOXAPARIN 120 MG/0.8 ML SYR (J1650) SC (13:45)
[2017-10-04] MEDS ORDERED: WARFARIN SOD 7.5 MG TAB PO (17:00)
== END 2017-10-04 15:50 | disposition home or self-care (01) | DRG 254 ==
LOC: M PCU 10-03 18:16 → M ED 09:42 → M ED INP 16:00 → M ICU 17:53
PROVIDERS: Surgery Vascular Surgery
PROC: 3E04317 Introduction of Other Thrombolytic into Central Vein, Percutaneous Approach (ICD-10-PCS; 2017-09-21)
PROC: 05753DZ Dilation of Right Subclavian Vein with Intraluminal Device, Percutaneous Approach (ICD-10-PCS; 2017-09-27)
PROC: 05733DZ Dilation of Right Innominate Vein with Intraluminal Device, Percutaneous Approach (ICD-10-PCS; 2017-09-27)
PROC: 05773DZ Dilation of Right Axillary Vein with Intraluminal Device, Percutaneous Approach (ICD-10-PCS; 2017-09-27)
PROC: 05HC33Z Insertion of Infusion Device into Left Basilic Vein, Percutaneous Approach (ICD-10-PCS; 2017-09-28)
PROC: 05753DZ Dilation of Right Subclavian Vein with Intraluminal Device, Percutaneous Approach (ICD-10-PCS; principal; 2017-10-02)
PROC: 05733DZ Dilation of Right Innominate Vein with Intraluminal Device, Percutaneous Approach (ICD-10-PCS; 2017-10-02)
DX: I82.B11 Acute embolism and thrombosis of right subclavian vein (principal); I82.621 Acute embolism and thrombosis of deep veins of right upper extremity; I82.611 Acute embolism and thrombosis of superficial veins of right upper extremity; E55.9 Vitamin D deficiency, unspecified; E78.00 Pure hypercholesterolemia, unspecified; E03.9 Hypothyroidism, unspecified; I10 Essential (primary) hypertension; Z79.899 Other long term (current) drug therapy; Z91.040 Latex allergy status; Z88.2 Allergy status to sulfonamides; Z79.01 Long term (current) use of anticoagulants

== ENCOUNTER → 2017-10-16 | Outpatient (REF) | payer OTHER ==
[2017-10-16 17:50] LABS: INR 1.72; PROTHROMBIN TIME 20.7 SECONDS (12.4-14.5)
== END ==
LOC: M LABDRAW1 16:22
DX: I82.601 Acute embolism and thrombosis of unspecified veins of right upper extremity (principal)
CPT/HCPCS: 85610

== ENCOUNTER → 2017-10-22 | Outpatient (REF) | payer OTHER ==
[2017-10-22 16:23] LABS: INR 1.97; PROTHROMBIN TIME 23.1 SECONDS (12.4-14.5)
== END ==
LOC: M LABDRAW1 15:28
DX: I82.601 Acute embolism and thrombosis of unspecified veins of right upper extremity (principal)

== ENCOUNTER → 2017-10-29 | Outpatient (REF) | payer OTHER ==
[2017-10-29 16:05] LABS: INR 1.84; PROTHROMBIN TIME 21.6 SECONDS (12.1-14.4)
== END ==
LOC: M LABDRAW1 11:36
DX: I82.601 Acute embolism and thrombosis of unspecified veins of right upper extremity (principal)

== ENCOUNTER → 2017-11-05 | Outpatient (REF) | payer OTHER ==
[2017-11-05 14:10] LABS: PROTHROMBIN TIME 24.8 SECONDS (12.1-14.4)
== END ==
LOC: M LABDRAW1 12:56
DX: Z51.81 Encounter for therapeutic drug level monitoring (principal); Z79.01 Long term (current) use of anticoagulants; I82.601 Acute embolism and thrombosis of unspecified veins of right upper extremity

== ENCOUNTER → 2017-11-08 | Outpatient (CLI) | payer OTHER | LOC: M WHC 10:39 | DX: Z12.31 Encounter for screening mammogram for malignant neoplasm of breast (principal); Z78.0 Asymptomatic menopausal state; Z92.89 Personal history of other medical treatment; Z92.0 Personal history of contraception; Z80.3 Family history of malignant neoplasm of breast | CPT/HCPCS: 77067 ==

== ENCOUNTER → 2017-11-08 | Outpatient (REF) | payer OTHER ==
[2017-11-10 15:38] LABS: HPV HYBRID CAPTURE II Negative (Negative)
== END ==
LOC: M SFHCWAGY 11:05
DX: Z12.4 Encounter for screening for malignant neoplasm of cervix (principal)

== ENCOUNTER → 2017-11-12 | Outpatient (REF) | payer OTHER ==
[2017-11-12 16:18] LABS: INR 3.01; PROTHROMBIN TIME 31.9 SECONDS (12.1-14.4)
== END ==
LOC: M LABDRAW1 12:23
DX: I82.601 Acute embolism and thrombosis of unspecified veins of right upper extremity (principal)

== ENCOUNTER → 2017-11-19 | Outpatient (REF) | payer OTHER ==
[2017-11-19 13:43] LABS: INR 4.08; PROTHROMBIN TIME 40.6 SECONDS (12.1-14.4)
== END ==
LOC: M LABDRAW1 13:16
DX: I82.601 Acute embolism and thrombosis of unspecified veins of right upper extremity (principal)

== ENCOUNTER → 2018-01-22 | Outpatient (CLI) | payer OTHER | LOC: M RAD 13:51 | DX: I82.A21 Chronic embolism and thrombosis of right axillary vein (principal) | CPT/HCPCS: 93971 ==

== ENCOUNTER → 2018-04-05 | Outpatient (CLI) | payer OTHER | LOC: M RAD 13:37 | DX: I82.A21 Chronic embolism and thrombosis of right axillary vein (principal) | CPT/HCPCS: 93971 ==

== ENCOUNTER 2018-07-16 08:09 | Day surgery (SDC) | payer OTHER ==
[~2018-07-16] VITALS: Ht 152.4 cm; Wt 107.0 kg
[~2018-07-16 08:09] MED LIST changes: +BIOT50004 PO; +BYST20TA2 PO; +CALC600T60 PO; +CELE1CAP4 PO; +COUM1TAB17 PO; +ELIQ5TAB PO; +EPIN0.3I11 INJ; +INDA125TA PO; +LEVO112T2 PO; +LEVO112T25 PO; -LIDOCAINE 1% MDV 20ML VIAL As Ordered ONE; +LOSA25TA14 PO; +LOVA1CAP17 PO; +LOVE0.01 SC; +MAGN250T9 PO; +MULT1TAB18 PO; +NS 1,000 ML IV ONE; +OSTETAB3 PO; +TRIL135C6 PO; +VITA100067 PO
[2018-07-16] MEDS ORDERED: PROPOFOL 200 MG/20 ML VIAL As Ordered ONE ×2 (08:42→10:17)
[2018-07-16] MEDS ORDERED: LIDOCAINE 2% INJ 100 MG/5 ML SDV (FOR ANES.) As Ordered ONE (08:42)
--- NOTE | 2018-07-16 10:23 | ROOR ---
Patient Name: Pam Momin Procedure Date: 07/16/2018 9:59 AM Date of : 1960 Age: 57 Room: [facility] Gender: Female Note Status: Finalized Procedure: Total Colonoscopy to Cecum Indications: Positive Cologuard test Providers: Glenn Whalen MD Referring MD: KEKE DEE Requesting Provider: Medicines: Monitored Anesthesia Care Complications: No immediate complications. Procedure: Pre-Anesthesia Assessment: - The heart rate, respiratory rate, oxygen saturations, blood pressure, adequacy of pulmonary ventilation, and response to care were monitored throughout the procedure. The Colonoscope was introduced through the anus and advanced to the cecum, identified by appendiceal orifice and ileocecal valve. The colonoscopy was performed without difficulty. The patient tolerated the procedure well. The quality of the bowel preparation was excellent. Findings: The perianal and digital rectal examinations were normal. Non-bleeding internal hemorrhoids were found during retroflexion. The hemorrhoids were small and Grade I (internal hemorrhoids that do not prolapse). Multiple small and large-mouthed diverticula were found in the recto-sigmoid colon, sigmoid colon and descending colon. The exam was otherwise without abnormality on direct and retroflexion views. Impression: - Non-bleeding internal hemorrhoids. - Diverticulosis in the recto-sigmoid colon, in the sigmoid colon and in the descending colon. - The examination was otherwise normal on direct and retroflexion views. - No specimens collected. - The exam was otherwise normal to the cecum. Recommendation: - Patient has a contact number available for emergencies. The signs and symptoms of potential delayed complications were discussed with the patient. Return to normal activities tomorrow. Written discharge instructions were provided to the patient. - High fiber diet. - Discharge patient to home. - Continue present medications. - Resume Eliquis (apixaban) at prior dose today. - Repeat colonoscopy in 10 years for screening purposes. - Return to referring physician. - The findings and recommendations were discussed with the patient's family. Glenn Whalen MD Glenn Whalen MD 07/16/2018 10:23:20 AM This report has been signed electronically. Number of Addenda: 0 Note Initiated On: 07/16/2018 9:59 AM Estimated Blood Loss: Estimated blood loss: none.
[2018-07-16 10:49] VITALS: BP 132/85
== END 2018-07-16 10:54 | disposition home or self-care (01) ==
LOC: M OPP 08:09
PROVIDERS: ATTEND Internal Medicine Gastroenterology
DX: R19.5 Other fecal abnormalities (principal); K64.8 Other hemorrhoids; K57.30 Diverticulosis of large intestine without perforation or abscess without bleeding; G47.30 Sleep apnea, unspecified; Z88.2 Allergy status to sulfonamides; Z91.040 Latex allergy status; Z79.899 Other long term (current) drug therapy

== ENCOUNTER → 2018-10-30 | Outpatient (CLI) | payer OTHER ==
[~2018-10-30] MED LIST changes: -NS 1,000 ML IV ONE
--- NOTE | 2018-10-30 15:42 | REP ---
RIGHT UPPER EXTREMITY DUPLEX DOPPLER VENOUS ULTRASOUND: Real-time sonographic ultrasound evaluation and duplex Doppler interrogation of the right upper extremity deep venous systems is performed. Once again there is a small amount of chronic thrombus in the right axillary vein. This is unchanged since the prior study of 04/05/2018. No new thrombus is seen in the right jugular, subclavian, or brachial veins. 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 Electronically Signed by Reece Vickers MD 10/30/2018 04:39 P
== END ==
LOC: M RAD 14:26
PROVIDERS: ATTEND Surgery Vascular Surgery
DX: I82.A21 Chronic embolism and thrombosis of right axillary vein (principal)

== ENCOUNTER → 2019-02-18 | Outpatient (CLI) | payer OTHER ==
--- NOTE | 2019-02-18 11:47 | REPMRS ---
Patient History The patient states she had a clinical breast exam in 01/2019. Patient is postmenopausal and has history of basal cell skin cancer at age 58. Family history of colorectal cancer in paternal grandfather, breast cancer at age 80 in mother, pancreatic cancer in maternal aunt. Benign radio exam breast specimen of the right breast, September 14, 2016. Benign stereotatic loc for ea lesion of the right breast, September 14, 2016. Took hormonal contraceptives for 7 years. 3D TOMOSYNTHESIS WAS PERFORMED. Digital Woman Screen Mammo: February 18, 2019 - Exam #: [id number] Bilateral CC and MLO view(s) were taken. Technologist: Melania Cochran, Technologist Prior study comparison: November 08, 2017, bilateral digital woman screen mammo performed at [facility]. August 17, 2016, right breast digital mammo diagnostic unilateral, performed at [facility]. FINDINGS: There are scattered fibroglandular densities. There has been no change in the appearance of the mammogram from the prior studies. There is a mild amount of residual fibroglandular tissue which is fairly symmetric. There is no interval development of dominant mass, architectural distortion, or clustered microcalcification suggestive of malignancy. Assessment: BI-RADS/ACR category 1 mammogram. Negative Mammogram. Recommendation Routine screening mammogram in 1 year (for women over age 40). This mammogram was interpreted with the aid of an FDA-approved computer-aided dectection system. THE LIFETIME RISK OF BREAST CANCER IS 21.9%, THEREFORE SUPPLEMENTAL SCREENING MRI OF THE BREASTS IS RECOMMENDED IN 6 MONTHS. Electronically Signed By: Reece Vickers MD 02/18/19 [id number]
== END ==
LOC: M WHC 10:15
PROVIDERS: ATTEND Nurse Practitioner Family
DX: Z12.31 Encounter for screening mammogram for malignant neoplasm of breast (principal); Z80.0 Family history of malignant neoplasm of digestive organs; Z85.828 Personal history of other malignant neoplasm of skin

== ENCOUNTER → 2019-05-21 | Outpatient (CLI) | payer OTHER ==
--- NOTE | 2019-05-22 02:32 | REP ---
Clinical: History of chronic thrombus in the right axillary vein. Technique: Real time last scale and color Doppler evaluation using linear high frequency transducer. Findings: Small amount of residual nonocclusive thrombus identified in the axillary vein. No further evidence of right upper extremity thrombus noted. Incidental superficial collateral vessels noted from the proximal cephalic vein of uncertain clinical significance. Impression: 1. Small amount of residual nonocclusive thrombus in the right axillary vein. Electronically Signed by Cholo Xiong MD 05/22/2019 02:23 A
== END ==
LOC: M RAD 15:31
PROVIDERS: ATTEND Physician Assistant
DX: I82.A21 Chronic embolism and thrombosis of right axillary vein (principal)

== ENCOUNTER → 2020-02-19 | Outpatient (CLI) | payer OTHER ==
--- NOTE | 2020-02-19 16:22 | REPMRS ---
Patient History The patient states she had a clinical breast exam in 01/2020. Family history of colorectal cancer in paternal grandfather, breast cancer at age 80 in mother, pancreatic cancer in maternal aunt. Benign radio exam breast specimen of the right breast, September 14, 2016. Benign stereotatic loc for ea lesion of the right breast, September 14, 2016. Took hormonal contraceptives for 7 years. 3D TOMOSYNTHESIS WAS PERFORMED. Volpara breast density b. Digital Woman Screen Mammo: February 19, 2020 - Exam #: [id number] Bilateral CC and MLO view(s) were taken. Technologist: Melania Cochran, Technologist Prior study comparison: February 18, 2019, bilateral digital woman screen mammo performed at [facility]. November 08, 2017, bilateral digital woman screen mammo performed at [facility]. FINDINGS: There are scattered fibroglandular densities. There has been no change in the appearance of the mammogram from the prior studies. There is a mild amount of residual fibroglandular tissue which is fairly symmetric. There is no interval development of dominant mass, architectural distortion, or clustered microcalcification suggestive of malignancy. Assessment: BI-RADS/ACR category 1 mammogram. Negative Mammogram. Recommendation Routine screening mammogram in 1 year (for women over age 40). This mammogram was interpreted with the aid of an FDA-approved computer-aided dectection system. THE LIFETIME RISK OF BREAST CANCER IS 21.2 %, THEREFORE SUPPLEMENTAL SCREENING MRI OF THE BREASTS IS RECOMMENDED IN 6 MONTHS. Electronically Signed By: Reece Vickers MD 02/19/20 [id number]
== END ==
LOC: M WHC 14:53
PROVIDERS: ATTEND Nurse Practitioner Family
DX: Z12.31 Encounter for screening mammogram for malignant neoplasm of breast (principal)

== ENCOUNTER → 2021-12-11 | Outpatient (REF) | payer OTHER ==
[~2021-12-11] MED LIST changes: +INDA1.253 PO; -INDA125TA PO; +LOSA25TA13 PO; -LOSA25TA14 PO
[2021-12-11 19:38] LABS: APPEARANCE, URINE MANUAL CLEAR (CLEAR); COLOR, URINE MANUAL LT YELLOW (YELLOW)
[2021-12-11 19:39] LABS: BILIRUBIN, URINE MANUAL NEGATIVE (NEGATIVE); BLOOD URINE MANUAL NEGATIVE (NEGATIVE); GLUCOSE, URINE (UA) MANUAL NEGATIVE (NEGATIVE); KETONE, URINE MANUAL NEGATIVE (NEGATIVE); LEUKOCYTE ESTERASE, URINE MAN NEGATIVE (NEGATIVE); PROTEIN, URINE MANUAL NEGATIVE (NEGATIVE); UROBILINOGEN, URINE MANUAL NORMAL (NORMAL)
[2021-12-11 19:45] LABS: NITRITE, URINE MANUAL POSITIVE (NEGATIVE)
[2021-12-11 19:46] LABS: BACTERIA, URINE SMALL AMOUNT; HYALINE CAST, URINE NONE SEEN /lpf (0-1); RBC, URINE 0-1 /hpf (0-3); SQUAMOUS EPITHELIAL CELL URINE SMALL AMOUNT /hpf (SMALL AMT); WBC, URINE NONE SEEN /hpf (0-3)
== END ==
LOC: M LAB REF 16:35
PROVIDERS: ATTEND Physician Assistant
DX: N39.0 Urinary tract infection, site not specified (principal)

== ENCOUNTER → 2021-12-29 | Outpatient (CLI) | payer OTHER ==
[2021-12-29 12:16] LABS: BASO # 0.1 10^3/uL (0.0-0.2); EOS # 0.2 10^3/uL (0.0-0.5); EOS % 3.5 % (0.0-3.0); HEMATOCRIT 41.1 % (36.0-47.0); HEMOGLOBIN 12.8 g/dl (12.0-15.5); LYMPH # 1.6 10^3/uL (1.5-5.0); LYMPH % 28.3 % (24.0-44.0); MEAN CORPUSCULAR HEMOGLOBIN 28.6 pg (27.0-33.0); MEAN CORPUSCULAR HGB CONC 31.1 g/dl (32.0-36.5); MEAN CORPUSCULAR VOLUME 91.7 fl (80.0-96.0); MONO # 0.5 10^3/uL (0.0-0.8); NEUTROPHILS # 3.3 10^3/uL (1.5-8.5); NEUTROPHILS % 57.7 % (36.0-66.0); PLATELET COUNT, AUTOMATED 312 10^3/uL (150-450); RED BLOOD COUNT 4.48 10^6/uL (4.00-5.40); WHITE BLOOD COUNT 5.8 10^3/uL (4.0-10.0)
[2021-12-29 12:26] LABS: INR 1.1; PROTHROMBIN TIME 14.6 SECONDS (12.7-14.5)
[2021-12-29 12:34] LABS: APPEARANCE, URINE MANUAL HAZY (CLEAR); COLOR, URINE MANUAL YELLOW (YELLOW)
[2021-12-29 12:41] LABS: BILIRUBIN, URINE MANUAL NEGATIVE (NEGATIVE); BLOOD URINE MANUAL NEGATIVE (NEGATIVE); GLUCOSE, URINE (UA) MANUAL NEGATIVE (NEGATIVE); KETONE, URINE MANUAL NEGATIVE (NEGATIVE); LEUKOCYTE ESTERASE, URINE MAN POSITIVE (NEGATIVE); NITRITE, URINE MANUAL NEGATIVE (NEGATIVE); PROTEIN, URINE MANUAL NEGATIVE (NEGATIVE); UROBILINOGEN, URINE MANUAL NORMAL (NORMAL)
[2021-12-29 13:00] LABS: BILIRUBIN,TOTAL 0.4 MG/DL (0.2-1.0); CALCIUM LEVEL 9.6 MG/DL (8.8-10.2); GLOMERULAR FILTRATION RATE 59.8 (>45); POTASSIUM SERUM 4.4 MEQ/L (3.5-5.1); TOTAL PROTEIN 8.2 GM/DL (6.4-8.2)
[2021-12-29 13:00] LABS: BACTERIA, URINE SMALL AMOUNT; HYALINE CAST, URINE NONE SEEN /lpf (0-1); RBC, URINE NONE SEEN /hpf (0-3); SQUAMOUS EPITHELIAL CELL URINE SMALL AMOUNT /hpf (SMALL AMT)
== END ==
LOC: M RAD 10:57
DX: Z01.818 Encounter for other preprocedural examination (principal)

== ENCOUNTER → 2022-04-06 | Outpatient (REF) | payer OTHER | LOC: M PLALAB 11:11 | PROVIDERS: ATTEND Obstetrics & Gynecology | DX: Z12.4 Encounter for screening for malignant neoplasm of cervix (principal) | CPT/HCPCS: 87624; G0123 ==

== ENCOUNTER → 2022-04-06 | Outpatient (CLI) | payer OTHER | LOC: M WHC 10:16 | PROVIDERS: ATTEND Nurse Practitioner Family | DX: Z12.31 Encounter for screening mammogram for malignant neoplasm of breast (principal) ==

== ENCOUNTER → 2022-04-12 | Outpatient (CLI) | payer OTHER | LOC: M WUC 14:37 | DX: Z96.651 Presence of right artificial knee joint (principal) ==

== ENCOUNTER → 2023-07-24 | Outpatient (CLI) | payer OTHER ==
[~2023-07-24] MED LIST changes: -BIOT50004 PO; +BIOT5CAP8 PO; +BYST1TAB PO; -BYST20TA2 PO
== END ==
LOC: M WHC 09:28
PROVIDERS: ATTEND Obstetrics & Gynecology
DX: Z12.31 Encounter for screening mammogram for malignant neoplasm of breast (principal)

== ENCOUNTER → 2025-04-01 | Outpatient (CLI) | payer MEDICARE, OTHER | LOC: M WHC 11:40 | PROVIDERS: ATTEND Physician Assistant | DX: Z12.31 Encounter for screening mammogram for malignant neoplasm of breast (principal); R92.313 Mammographic fatty tissue density, bilateral breasts ==